=== PATIENT | female | born 1975 | race Caucasian/White ===

== ENCOUNTER 2020-07-05 01:02 | Outpatient (CLI) | payer OTHER, SELFPAY ==
[2020-07-05 18:53] LABS: SARS-CoV-2 RNA PCR Negative
== END 2020-07-05 01:03 | disposition home or self-care (01) ==
LOC: ANHCOVIDDT 01:03
PROVIDERS: PCP Family Medicine; Visit Provider Internal Medicine Gastroenterology
DX: Z01.812 Encounter for preprocedural laboratory examination (principal); Z20.828 Contact with and (suspected) exposure to other viral communicable diseases
CPT/HCPCS: 87635; C9803; U0003

== ENCOUNTER 2020-07-07 01:12 | Day surgery (SDC) | payer OTHER, SELFPAY ==
[2020-06-28 14:24] VITALS: BMI 31.8
--- NOTE | 2020-07-07 08:35 | PM.HPGS ---
History of Present Illness History of Present Illness Consent: Risks, benefits, and alternatives have been discussed and questions answered. Patient agrees to proceed with procedure. Chief complaint: Change in Bowel Habits Narrative: Juany Gabriel is a 44 year old W female referred for colonoscopy for change in bowel pattern. I performed a flexible sigmoidoscopy in this patient 4 years ago for some hematochezia and diarrhea. Her metformin was stopped she was placed on insulin and now the patient has constipation. She takes a stool softener and laxative twice a week. Patient also had a gastroscopy 4 years ago mild esophagitis duodenal biopsies were negative for celiac sprue at that time. [facility] Past Medical History Medical History (Updated 07/07/20 @ 08:38 by Shan Arriaga MD) Diabetes mellitus Dyslipidemia GERD (gastroesophageal reflux disease) History of malignant neoplasm of kidney Hypertension Surgical History Surgical History (Updated 07/07/20 @ 08:38 by Shan Arriaga MD) H/O right nephrectomy H/O vaginal hysterectomy Status post cholecystectomy Family History Family History (Updated 06/15/16 @ 23:19 by DOCTOR UNKNOWN) Father Hypertension Family history of diabetes mellitus in first degree relative Mother Hypertension Other Diabetes mellitus Social History Social History Smoking status: Never smoker Smoking end date: 11/18/13 Alcohol intake: current Substance use type: marijuana Meds Home Medications and Allergies Home Medications Medication Instructions Recorded Confirmed Type alprazolam 0.5 mg PO BID PRN 06/28/20 06/28/20 History insulin glargine [Basaglar KwikPen See Rx Instructions .ROUTE .COMPLEX 06/28/20 06/28/20 History U-100 Insulin] insulin lispro See Rx Instructions .ROUTE .COMPLEX 06/28/20 06/28/20 History meloxicam 15 mg PO DAILY 06/28/20 06/28/20 History omeprazole 20 mg PO DAILY 06/28/20 06/28/20 History ondansetron HCl 4 mg PO BID PRN 06/28/20 06/28/20 History Allergies Allergy/AdvReac Type Severity Reaction Status Date / Time codeine Allergy Unknown Nausea and Verified 07/07/20 08:39 Vomiting metformin Allergy Unknown Diarrhea Verified 07/07/20 08:39 morphine Allergy Unknown Chest Pain Verified 07/07/20 08:39 Exam Const: Orientation/consciousness: patient oriented x3 Resp: Auscultation: clear to auscultation bilaterally Cardio: Rate: regular rate Rhythm: regular rhythm Heart sounds: no murmurs GI: GI Palp: Yes Soft to palpation, No Tenderness to palpation present (GI), Yes No hepatosplenomegaly present and No Palpable mass present Auscultation: normal bowel sounds Neuro: General: patient oriented x3 and no focal motor deficits Extrem: General: no pedal edema Assessment and Plan Additional Plan colonoscopy for evaluation of change in bowel pattern with increasing constipation
[2020-07-07 08:41] VITALS: BP 142/98; PULSE 65; RESP 20; TEMP 36.7; O2SAT 98; BMI 31.9
[2020-07-07 08:52] LABS: Glucose Point of Care 109 (65-105)
[2020-07-07] MEDS: LACTATED RINGERS 1,000 ML 150 ML IV CONT (08:53)
--- NOTE | 2020-07-07 09:02 | WPDANESEPPF ---
Anes - Initial Pre Proc Eval Procedure: Operation Date: 07/07/20 09:00 Proposed Procedures p Colonoscopy - Shan Arriaga MD Date/Time: 07/07/20 09:02 Surgeon: Shan Arriaga MD Pre Op Diagnosis: Change in Bowel Habits Patient Data Age: 44 Gender: F Height: 5 ft 4 in Weight: 84.5 kg Last Vital Signs Temp 98.1 F 07/07/20 08:41 Pulse 65 07/07/20 08:41 Resp 20 07/07/20 08:41 BP 142/98 H 07/07/20 08:41 Pulse Ox 98 07/07/20 08:41 Allergies Allergy/AdvReac Type Severity Reaction Status Date / Time codeine Allergy Unknown Nausea and Verified 07/07/20 08:39 Vomiting metformin Allergy Unknown Diarrhea Verified 07/07/20 08:39 morphine Allergy Unknown Chest Pain Verified 07/07/20 08:39 Home Medications Medication Instructions Recorded Confirmed Type alprazolam 0.5 mg PO BID PRN 06/28/20 06/28/20 History insulin glargine [Basaglar KwikPen See Rx Instructions .ROUTE .COMPLEX 06/28/20 06/28/20 History U-100 Insulin] insulin lispro See Rx Instructions .ROUTE .COMPLEX 06/28/20 06/28/20 History meloxicam 15 mg PO DAILY 06/28/20 06/28/20 History omeprazole 20 mg PO DAILY 06/28/20 06/28/20 History ondansetron HCl 4 mg PO BID PRN 06/28/20 06/28/20 History Laboratory Tests 07/07/20 08:50 POC Capillary Glucose 109 mg/dl mg/dl (65-105) Patient hx anesthesia problems: none Family hx anesthesia problems: none PMFSH Past Medical History Medical History (Updated 07/07/20 @ 08:38 by Shan Arriaga MD) Diabetes mellitus Dyslipidemia GERD (gastroesophageal reflux disease) History of malignant neoplasm of kidney Hypertension Surgical History Surgical History (Updated 07/07/20 @ 08:38 by Shan Arriaga MD) H/O right nephrectomy H/O vaginal hysterectomy Status post cholecystectomy Family History Family History (Updated 06/15/16 @ 23:19 by DOCTOR UNKNOWN) Father Hypertension Family history of diabetes mellitus in first degree relative Mother Hypertension Other Diabetes mellitus Social History Social History Smoking status: Never smoker Smoking end date: 11/18/13 Alcohol intake: current Substance use type: marijuana Anes - Eval Final PreProcedure Day of Procedure 07/07/20 09:02 Patient weight: normal Heart: regular rate and rhythm Lungs: clear to auscultation Airway: Mallampati scale class II Neurological: alert and oriented Last oral intake: >/= 8 hours ASA classification: III Emergent: no Anesthetic plan: proceed Anesthesia type and monitoring: general GIVS and standard monitoring Informed Consent: The patient's anesthetic plan and its attendant risks and benefits were discussed with the patient/family/POA. Questions were solicited and answers provided to the satisfaction of the patient/family/POA.
[2020-07-07 09:29] VITALS: BP 119/72; PULSE 83; RESP 25; O2SAT 98
[2020-07-07 09:39] VITALS: BP 126/63; PULSE 65; RESP 16; O2SAT 98
[2020-07-07 09:49] VITALS: BP 135/66; PULSE 68; RESP 16; O2SAT 98
[2020-07-07 09:57] LABS: Glucose Point of Care 102 (65-105)
== END 2020-07-07 10:00 | disposition home or self-care (01) ==
PROVIDERS: PCP Family Medicine; Visit Provider Internal Medicine Gastroenterology
PROC: 0DJD8ZZ Inspection of Lower Intestinal Tract, Via Natural or Artificial Opening Endoscopic (ICD-10-PCS; CPT 45378; principal; 2020-07-07 09:00)
DX: K59.00 Constipation, unspecified (principal); K64.4 Residual hemorrhoidal skin tags; E11.9 Type 2 diabetes mellitus without complications; I10 Essential (primary) hypertension; E78.5 Hyperlipidemia, unspecified; K21.9 Gastro-esophageal reflux disease without esophagitis; Z85.528 Personal history of other malignant neoplasm of kidney; Z90.5 Acquired absence of kidney; F12.90 Cannabis use, unspecified, uncomplicated; Z79.4 Long term (current) use of insulin
CPT/HCPCS: 45378; J2704; J7120